=== PATIENT | male | born 1970 | race Caucasian/White ===

== ENCOUNTER 2025-01-17 17:23 | Outpatient (CLI) | payer OTHER, SELFPAY ==
--- NOTE | ~2025-01-17 | XR_ITS ---
EXAM: XR knee LT 3V DATE: 01/17/2025 17:39 HISTORY: M23.209 - Derangement of unspecified meniscus due to old ... . COMPARISON: None available. FINDINGS: Normal mineralization. No fracture or dislocation. No lytic or blastic lesion. Severe medi al joint space narrowing. Moderate tricompartmental osteophytosis. Small-volume joint fluid. No erosi on or periosteal change. Soft tissues within normal limits. IMPRESSION: Tricompartmental left knee osteoarthritic arthritis, severe in the medial compartment. Sm all knee joint effusion. Reviewed, dictated and finalized at location K. IMPRESSION: Tricompartmental left knee osteoarthritic arthritis, severe in the medial compartment. Small knee joint effusion.
--- OUTSIDE RECORDS SUMMARY | 2025-01-17 17:28 | XMS_ITS | Clinical Summary ---
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 Gender Identity Not on file Sexual Orientation Not on file Plan of Treatment Health Maintenance Due Date Last Done Comments Colorectal Cancer Screening Colonoscopy (10 Years) 1972 Annual Physical 1975 Hepatitis C 1990 DTaP, Tdap and Td Vaccines ( 1 - Tdap) 1991 Hepatitis B Vaccines (1 of 3 - 19+ 3-dose series) 1991 Pneumococcal Vaccine: 50+ Ye ars (1 of 1 - PCV) 2022 Zoster Vaccines (1 of 2) 2022 COVID-19 Vaccine (1 - 2023-2 5 season) 2024 Meningococcal B Vaccine Aged Out No l onger eligible based on patient's age to complete this topic Meningococcal Vaccine Aged Out No brad ingris eligible based on patient's age to complete this topic RSV Immunizations Under 20 Months Aged Out No longer eligible based on patient's age to complete this topic Insurance Care Teams Section Chief Relationship Specialty Start Date End Date None, Provider, PCP - General 09/13/19
--- OUTSIDE RECORDS SUMMARY | 2025-01-17 17:28 | XMS_ITS | Clinical Summary ---
Author Organization [facility] [employer] Address [address] [place] [address] Care Team Providers Care Certified Rehabilitation Counselor Name Role Phone Unavailable Primary Care Provider Unavailabl e Source Comments [facility] [employer],non-owned Affiliates and Associated Physician Practices is amultiple site organization consisting of ambulatory clinics and hospital sitesin [place], [place], [place] and [place]. This disclosure is being madepursuant to the Care Everywhere program and may not contain all information available regarding this patient. 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 Gender Identity Not on file Sexual Orientation Not on file Plan of Treatment Health Maintenance Due Date Last Done Comments COLOGUARD (AGES 45-75) - COL ON CA SCREENING 1972 COLON MONITORING 1972 COLONOSCOPY - COLON CA SCREENING 1972 CT COLONOGRAPHY - COLON CA SCREENING 1972 Colorectal Cancer Screening 1972 FIT - COLON CA SCREENING 1972 FLEX SIG - COLON CA SCREENING 1972 LIPID TESTING 1972 HIV SCREENING 1987 HEPATITIS C SCREENING 04/09/1990 DTAP/TDAP/TD VACCINES (1 - Tdap) 1991 HEPATITIS B VACCINE (1 of 3 - 19+ 3-dose series) 1991 PNEUMOCOCCAL VACCINE 50+ (1 of 1 - PCV) 2022 ZOSTER VACCINE (1 of 2) 2022 COVID-19 VACCINE (1 - 2023-2 5 season) 2024 DEPRESSION SCREENING 07/14/2024 INFLUENZA VACCINE (#1) 2025 HIB VACCINE Aged Out No longer eligi ble based on patient's age to complete this topic HPV VACCINE Aged Out No longer eligi ble based on patient's age to complete this topic MENINGOCOCCAL (Group B) VACC INE SHARED DECISION-MAKING Aged Out No longer eligibl e based on patient's age to complete this topic MENINGOCOCCAL GROUPS A/C/Y/W VACCINE Aged Out No longer eligible b ased on patient's age to complete this topic Insurance
--- OUTSIDE RECORDS SUMMARY | 2025-01-17 17:28 | XMS_ITS | Encounter Summary ---
Author Organization [facility] Address [address] [place] [address] Care Team Providers Care Kennel Attendant Name Role Phone Unavailable Primary Care Provider Unavailabl e Encounter Details Date Type Department Care Team (Late st Contact Info) Description 07/15/2024 Lab Requisition [facility] - DermPath Lab [address] [place] [id number] Carmela Minor MD [address] [place] [address] [place] [phone] Neoplasm of uncertain behavior of skin Social History Tobacco Use Types Packs/Day Years Used Date Smoking Tobacco: Never Assessed Sex and Gender Information Value Date Recorded Sex Assigned at Not on file 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 Gender Identity Not on file Sexual Orientation Not on file documented as of this encounter Plan of Treatment Not on file documented as of this encounter Procedures Procedure Name Priority Date/Time Associated Diagnosis Comments DERMATOPATHOLOGY Routine 07/15/2024 12:0 0 AM SAGGER MAKER Neoplasm of uncertain behavior of skin documented in this encounter Results * DERMATOPATHOLOGY (07/15/2024 12:00 AM SAGGER MAKER) Case Report Dermatopathology Report Case: [id number] Authorizing Provider: Carmela Minor MD Collected: 07/15/2024 12:00 AM Ordering Location: [facility] - Received: 07/16/2024 01:03 PM DermPath Lab Pathologist: Tila Chaudhry MD Specimen: Skin, right superior helix 2:06 PM SAGGER MAKER DERMATOPATHOLOGY LABORATORY Final Diagnosis Specimen A. SKIN, right superior helix: SQUAMOUS CELL CARCINOMA, WELL DIFFERENTIATED (C44.222) 2:06 PM [facility] DERMATOPATHOLOGY LABORATORY at [address] SAGGER MAKER Clinical History Squamous Cell Carcinoma 2:06 PM [facility] DERMATOPATHOLOGY LABORATORY Gross Description Specimen A: Received is one formalin filled container labeled with the patient's name and designated right superior helix. The specimen consists of a shave biopsy measuring 6x5x2 mm. Jar 0. 5 2:06 PM [facility] DERMATOPATHOLOGY LABORATORY Microscopic Description Specimen A. SKIN, right superior helix: Arising in the epidermis and extending into the dermis there are irregularly shaped aggregates of keratinocytes showing evidence of premature cornification. 5 2:06 PM [facility] DERMATOPATHOLOGY LABORATORY Disclaimer An external and internal positive and negative controls are appropriate for the histochemical, immunohistochemical and immunofluorescence stain(s) in this case (if any), except where stated explicitly. The performance characteristics of the stain(s) cited in this report were developed and its performance characteristic determined by the Dermatopathology Laboratory at [facility], directed by Dr. Srini Walters. These tests need not be, and therefore are not, approved by the [place] Food and Drug Administration. The tests are used for clinical purposes. Billing Codes Specimen Charges Stain Charges 72769 1 5 2:06 PM [facility] DERMATOPATHOLOGY LABORATORY Embedded Images 2:06 PM [facility] DERMATOPATHOLOGY LABORATORY Pathology/Cytolog y TISSUE SPECIMEN FROM SKIN / Unknown 07/15/2024 07/16/2024 1:03 PM SAGGER MAKER us Carmela Minor MD LAB - PATHOLOGY/CYTOLOGY ORDERAB LES Final Result DERMATOPATHOLOGY LABORATORY [facility] - Department of Dermatology [facility] Medicine [address] [place] [address], [address]rd [place] [address], [facility] [phone] documented in this encounter Visit Diagnoses Diagnosis Neoplasm of uncertain behavior of skin documented in this encounter
--- OUTSIDE RECORDS SUMMARY | 2025-01-17 17:28 | XMS_ITS | Continuity of Care Document ---
Author Organization [facility] Address [address] [place] [address] Phone Care Team Providers Care Investigative Reporter Name Role Phone Bang CARDENAS, Yves Unavailable Unavailable Allergies, Adverse Reactions, Alerts Substance Reaction Status Criticality No Known Allergies Active No Inform ation Medications Medication Instructions Dosage Effective Dates (start - stop) Status Comments Xanax 0.5 mg tablet take 1 tablet by oral route every 6 hours as needed 0.5 MG - Active PRN for anxiety, avoid driving or operate machines Lexapro 10 mg tablet take 1 tablet by oral route every day 10 MG - Active trazodone 50 mg tablet take 1 tablet [...] Copied on Encounter OFFICE/OUTPA TIENT VISIT, EST [facility], [place], [address] [place] [address], [id number], tel:[phone] [facility] [place] anxiety1 (chief complaint) palpitatio n1 (chief complaint) Generalized Anxiety DisorderPrimary insomniaPalpitation s 4 Bang Linton [address], [place], [place], [id number] , . tel:[phone] OFFICE/OUTPA TIENT VISIT, EST [facility] [place], [address], [place], [id number], tel:[phone] [facility] [place] pain (chief complaint) insomnia1 (chief complaint) cold sore1 (chief complaint) ED (chief complaint) Primary insomniaMale erectile dysfunction, unspecifiedChronic pain syndromeHerpes simplex infection 3 Bang Linton [address], [place], [place], [id number] , . tel:[phone] PREV VISIT, NEW, AGE 40-64 [facility] [place], [address], [place], [id number], tel:[phone] [facility] [place] physical (chief complaint) Encounter for general adult medical examination without abnormal findings 3 Bang Marinelli. [address] [place], [place], [id number] , . tel:[phone] Family History Family Member Type Diagnosis Age At Onset Sister Problem Alive and well Father Problem prostate CA 50 Mother Problem melanoma Payers Payer name Insurance type Covered alliance party ID Authoriza tion(s) No Information Social History [...] Mental Status Date Cognitive Assessment Orientation - [place] ed to time, place, person, situation.
== END 2025-01-17 17:24 | disposition home or self-care (01) ==
PROVIDERS: PCP Family Medicine; Visit Provider Nurse Practitioner Adult Health
DX: M17.12 Unilateral primary osteoarthritis, left knee (principal)
CPT/HCPCS: 73562

== ENCOUNTER 2025-02-21 14:00 | Outpatient (CLI) | payer OTHER, SELFPAY ==
--- NOTE | ~2025-02-21 | MR_ITS ---
EXAMINATION: MR knee LT wo con DATE: 02/21/2025 14:43 INDICATION: Meniscal derangement at the left knee TECHNIQUE: Magnetic resonance imaging (MRI) of the left knee was performed without intravenous contra st. Sequences included coronal PD-weighted FSE, coronal PD-weighted FS FSE, sagittal T2-weighted FSE , sagittal PD-weighted FS FSE and axial PD weighted fat saturated FSE. COMPARISON: Left knee radiographs dated 01/17/2025 FINDINGS: Medial compartment: Medial extrusion of the medial meniscal body with complex tear of the body and posterior horn. This i ncludes a dominant longitudinal horizontal tear plane with secondary tear planes involving the portio n of the posterior body inferior to the horizontal tear plane. There is a small macerated appearing m eniscal flap extending anteriorly from the free edge of the lateral aspect of the posterior horn. The extruded meniscal body also appears small with macerated appearance with diffuse increased amorphous increased signal of the remaining meniscal tissue. There is partial thickness cartilage loss with ch ondral surface regularity throughout the medial tibial plateau and weightbearing medial femoral condy le. This is most severe at the medial margin of the medial tibial plateau and anterior weightbearing medial femoral condyle where it appears near full-thickness with mild subarticular edema-like signal change. Small to moderate size marginal osteophytes are present. Lateral compartment: Lateral meniscus is normal. Partial-thickness chondral fissuring which appears to involve greater ayan n 50% the cartilage thickness but without degenerative subchondral changes at the posterior third of the lateral tibial plateau. Shallow chondral ulceration along the anterior and posterior margins of t he weightbearing lateral femoral condyle. Small to moderate size marginal osteophytes are present. Patellofemoral compartment: Deep chondral ulceration with underlying small central subchondral osteophytes and minimal scattered subarticular edema-like signal change at the trochlear groove and immediately adjacent medial and lat eral trochlea. Patellar cartilage thickness is relatively preserved with scattered deep chondral fiss uring without degenerative subchondral changes at the apical ridge in both medial and lateral facets. Moderate-sized marginal osteophytes are present. Ligaments and tendons: Anterior and posterior cruciate ligaments are normal. The medial collateral ligament and fibular wilman ateral ligament complex are normal. The extensor mechanism is normal. The visualized medial and later al hamstring tendons as well as the iliotibial band are normal. Fluid: Small knee joint effusion with mild synovitis at the suprapatellar pouch. No loose osteochondral bodi es identified. Osseous/other: No fracture or pathologic marrow replacing process. IMPRESSION: 1. Complex medial meniscal tear. 2. Tricompartmental osteoarthritis, moderate severity with high-grade chondromalacia in the medial an d patellofemoral compartments and mild with moderate grade chondral malacia in the lateral compartmen t. Reviewed, dictated and finalized at location A. IMPRESSION: 1. Complex medial meniscal tear. 2. Tricompartmental osteoarthritis, moderate severity with high-grade chondroma lacia in the medial and patellofemoral compartments and mild with moderate grad e chondral malacia in the lateral compartment.
--- OUTSIDE RECORDS SUMMARY | 2025-02-21 14:24 | XMS_ITS | Clinical Summary ---
Author Organization 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
--- OUTSIDE RECORDS SUMMARY | 2025-02-21 14:24 | XMS_ITS | Patient Health Record ---
Author Organization [facility] Address [address] [place] [address] Care Team Providers Care Senior Ui Software Engineer Name Role Phone PERRY MCCARTNEY Unavailable [phone] Rhonda Barahonaa Unavailable Unavailable Allergies No Known Allergies Reason For Referral No Information Problems Problem Type SNOMED Code ICD Code Onset Dates Problem Status W/U Status Risk Notes Problem Obstructive sleep apnea (adult) (pediatric) (G47.33) Active confirmed Plan Of Treatment No Information Insurance Providers Payer Name Payer Address Payer Phone Subscriber Number Group Number Insured Name Patient Relationship to Insured Coverage Start Date Coverage End Date [facility] [address] [place] [address] [phone] [id number] Den Deleon Self - patient is the insured Medical (General) History Medical History History ICD Code Arthritis Insomnia
--- OUTSIDE RECORDS SUMMARY | 2025-02-21 14:24 | XMS_ITS | Clinical Summary ---
Author Organization [facility] [employer] Address [address] [facility] [place] [address] Care Team Providers Care V Belt Curer Name Role Phone Unavailable Primary Care Provider Unavailabl e Source Comments [facility] [employer],non-owned Affiliates and Associated Physician Practices is amultiple site organization consisting of ambulatory clinics and hospital sitesin [place] and [place]. This disclosure is being madepursuant to the Care Everywhere program and may not contain all information available regarding this patient. Last updated 18.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
--- OUTSIDE RECORDS SUMMARY | 2025-02-21 14:24 | XMS_ITS | Encounter Summary ---
Author Organization [facility] Address [address] [facility] [address] [facility] [place] [address] Care Team Providers Care Safe And Vault Mechanic Name Role Phone Unavailable Primary Care Provider Unavailabl e Encounter Details Date Type Department Care Team (Late st Contact Info) Description 07/15/2024 Lab Requisition [facility] - DermPath Lab [address] [facility] [place] [phone] Carmela Minor MD [address] [place] [address] [place] [phone] Neoplasm of uncertain behavior of skin Social History Tobacco Use Types Packs/Day Years Used Date Smoking Tobacco: Never Assessed Sex and Gender Information Value Date Recorded Sex Assigned at Not on file Legal Sex Male 12:15 PM STOCK MOVER Gender Identity Not on file Sexual Orientation Not on file documented as of this encounter Plan of Treatment Not on file documented as of this encounter Procedures Procedure Name Priority Date/Time Associated Diagnosis Comments DERMATOPATHOLOGY Routine 07/15/2024 12:0 0 AM STOCK MOVER Neoplasm of uncertain behavior of skin documented in this encounter Results * DERMATOPATHOLOGY (07/15/2024 12:00 AM STOCK MOVER) Case Report Dermatopathology Report Case: [id number] Authorizing Provider: Carmela Minor MD Collected: 07/15/2024 12:00 AM Ordering Location: [facility] - Received: 07/16/2024 01:03 PM DermPath Lab Pathologist: Tila Chaudhry MD Specimen: Skin, right superior helix 2:06 PM STOCK MOVER DERMATOPATHOLOGY LABORATORY Final Diagnosis Specimen A. SKIN, right superior helix: SQUAMOUS CELL CARCINOMA, WELL DIFFERENTIATED (C44.222) 2:06 PM [facility] DERMATOPATHOLOGY LABORATORY at [address] STOCK MOVER Clinical History Squamous Cell Carcinoma 2:06 PM [facility] DERMATOPATHOLOGY LABORATORY Gross Description Specimen A: Received is one formalin filled container labeled with the patient's name and designated right superior helix. The specimen consists of a shave biopsy measuring 6x5x2 mm. Jar 0. 5 2:06 PM [facility] DERMATOPATHOLOGY LABORATORY Microscopic Description Specimen A. SKIN, right superior helix: Arising in the epidermis and extending into the dermis there are irregularly shaped aggregates of keratinocytes showing evidence of premature cornification. 5 2:06 PM [facility] DERMATOPATHOLOGY LABORATORY Disclaimer An external and internal positive and negative controls are appropriate for the histochemical, immunohistochemical and immunofluorescence stain(s) in this case (if any), except where stated explicitly. The performance characteristics of the stain(s) cited in this report were developed and its performance characteristic determined by the Dermatopathology Laboratory at [facility], directed by Dr. Srini Walters. These tests need not be, and therefore are not, approved by the [place] Food and Drug Administration. The tests are used for clinical purposes. Billing Codes Specimen Charges Stain Charges 19229 1 5 2:06 PM [facility] DERMATOPATHOLOGY LABORATORY Embedded Images 2:06 PM [facility] DERMATOPATHOLOGY LABORATORY Pathology/Cytolog y TISSUE SPECIMEN FROM SKIN / Unknown 07/15/2024 07/16/2024 1:03 PM STOCK MOVER us Carmela Minor MD LAB - PATHOLOGY/CYTOLOGY ORDERAB LES Final Result DERMATOPATHOLOGY LABORATORY [facility] - Department of Dermatology [facility] Medicine [address] [place] [address], [address] [place] [address], [facility] [phone] documented in this encounter Visit Diagnoses Diagnosis Neoplasm of uncertain behavior of skin documented in this encounter
== END 2025-02-21 14:01 | disposition home or self-care (01) ==
PROVIDERS: PCP Family Medicine; Visit Provider Nurse Practitioner Adult Health
DX: S83.232D Complex tear of medial meniscus, current injury, left knee, subsequent encounter (principal); X58.XXXD Exposure to other specified factors, subsequent encounter; M17.12 Unilateral primary osteoarthritis, left knee
CPT/HCPCS: 73721

== ENCOUNTER 2025-03-02 07:42 | Outpatient (CLI) | payer OTHER, SELFPAY ==
--- NOTE | ~2025-03-02 | US_ITS ---
EXAM: US abdomen limited - 03/02/2025 7:58 CDT History: 54 years old Male with ruq pain, diarrhea TECHNIQUE: Ultrasound of the abdomen was performed. COMPARISON: None available. FINDINGS: LIVER: Normal echogenicity. The liver is normal in size. No discrete liver masses are noted. INTRAHEPATIC BILE DUCTS: Nondilated. COMMON BILE DUCT: 4 mm. Normal caliber. GALLBLADDER: Normally distended. No stones, wall thickening or surrounding fluid. PANCREAS: Visualized portions are normal. ASCITES: None. OTHER: Patient IVC IMPRESSION: Normal ultrasound evaluation of the right upper quadrant abdomen. Reviewed, dictated and finalized at location A.
== END 2025-03-02 07:43 | disposition home or self-care (01) ==
LOC: MICIMG 07:43
PROVIDERS: PCP Family Medicine; Visit Provider Nurse Practitioner Family
DX: R10.11 Right upper quadrant pain (principal); R19.7 Diarrhea, unspecified
CPT/HCPCS: 76705

== ENCOUNTER 2025-03-23 10:50 | Outpatient (CLI) | payer OTHER, SELFPAY ==
--- OUTSIDE RECORDS SUMMARY | 2023-09-04 04:58 | XMS_ITS | Continuity of Care Document ---
Author Organization [facility] Address [address] [place] [address] Phone Care Team Providers Care Cut And Cover Line Worker Name Role Phone Yves Cuenca MD Unavailable Unavailable Allergies, Adverse Reactions, Alerts Substance Reaction Status Criticality No Known Allergies Active No Inform ation Medications Medication Instructions Dosage Effective Dates (start - stop) Status Comments Lexapro 10 mg tablet take 1 tablet by oral route every day 10 MG - Active Xanax 0.5 mg tablet take 1 tablet by oral route every 6 hours as needed 0.5 MG - Active PRN for anxiety, avoid driving or operate machines trazodone 50 mg tablet take 1 tablet by oral route every bedtime after meals 50 MG - Active meloxicam 15 mg tablet take 1 tablet by oral route every day 15 MG - Active sildenafil 100 mg tablet take 1 tablet by oral route every day as needed approximately 1 hour before sexual activity as needed 100 MG - Active take one oral ly about one hour before activity, max 1/24 hours Valtrex 1 gram tablet take 2 Tablet by oral route every 12 hours as needed 2000 MG - Active take total of 4 pills for each episode Procedures Procedure Date OFFICE/OUTPATIENT VISIT, EST OFFICE/OUTPATIENT VISIT, EST PREV VISIT, NEW, AGE 40-64 Advance Directives Directive Yes / No Effective Date File Name No Information Encounters Encounter Description Practice Location Reason(s) For Visit Diagnoses Date Provider Providers Copied on Encounter OFFICE/OUTPA TIENT VISIT, EST [facility], [address] [place] [address], [id number], tel:[phone] [facility] anxiety1 (chief complaint) palpitatio n1 (chief complaint) Generalized Anxiety DisorderPrimary insomniaPalpitation s 4 Bang Linton [address], [place], [place], [id number] , . tel:[phone] OFFICE/OUTPA TIENT VISIT, EST [facility], [address], [place], [id number], tel:[phone] [facility] pain (chief complaint) insomnia1 (chief complaint) cold sore1 (chief complaint) ED (chief complaint) Primary insomniaMale erectile dysfunction, unspecifiedChronic pain syndromeHerpes simplex infection 3 Bang Linton [address], [place], [place], [id number] , . tel:[phone] PREV VISIT, NEW, AGE 40-64 [facility], [address], [place], [id number], tel:[phone] [facility] physical (chief complaint) Encounter for general adult medical examination without abnormal findings 3 Bang Marinelli. [address], [place], [id number] , . tel:[phone] Family History Family Member Type Diagnosis Age At Onset Sister Problem Alive and well Father Problem prostate CA 50 Mother Problem melanoma Payers Payer name Insurance type Covered democrat ID Authoriza tion(s) No Information Social History Type Description Quantity Date Captured Comments Alcohol Use Details scotch 2 drinks monthly 4 Caffeine Use Details Unknown Tobacco Use Status Occasional tobacco smoker Smoking Status Light tobacco smoker Sex Male Vital Signs Date / Time: Height Weight BMI Pulse Rate Blood Pressure Temperature Respiratory Rate Body Surface Area Head Circumference BMI percentile Pulse Ox Inhaled Ox 10:01 AM 67.32 in 205.80 lbs 31.9 3 kg/m eter (2) 80 /min 120/80 mm[Hg] 98.3 F 16 /min Chief Complaint And Reason For Visit From encounter dated '09/04/2023 09:58'. anxiety1 (chief complaint). Description: Pt has been having severe anxiety lately pt has been having insomnia as well Pt denies any kathya depression Pt has been having panic attacks Pt states that heretired from and he has a new job and he has some uncertainties. He can not pinpoint anything but he feels everything is bearing down on him and he feels very anxious all the time. Pt deniesany suicidal or homicidal thought Pt denies any crying spells. palpitation1 (chief complaint). Description: Pt has been feeling mild palpitation during panic attacks Pt denies any sob. Pt denies any chest pain. Pt denies any dizziness or syncope Plan Of Treatment Date Type Action Status No Information History Of Present Illness Encounter Date Complaint History Of Prese nt Illness anxiety1 Pt has been havi ng severe anxiety lately pt has been having insomnia as well Pt denies any kathya depression Pt has been having panic attacks Pt states that he retired from and he has a new job and he has some uncertainties. He can not pinpoint anything but he feels everything is bearing down on him and he feels very anxious all the time. Pt denies any suicidal or homicidal thought Pt denies any crying spells. palpitation1 Pt has been feel ing mild palpitation during panic attacks Pt denies any sob. Pt denies any chest pain. Pt denies any dizziness or syncope pain Pt has knee and neck pain. Pt has history of neck and knee surgery Pt takes mobic daily and doing ok Pt needs refill insomnia1 Pt has chronic i nsomnia Pt takes trazodone qhs and doing ok. Pt needs refill cold sore1 Pt has intermitt ent cold sore and he wants valtrex PRN. Pt denies any acute infection. ED Pt has ED. Pt de nies any testicular pain, atrophy or nodule Pt has good libido Pt states that viagra worked well for him. He wants some viagra refilled. Pt denies any chest pain with sex . Pt has good libido. Shaquille-11-2023 physical Pt needs annual physical. pt has chronic insomnia and some knee and neck pain Pt has history of knee surgery and cervical fusion. Pt take mobic PRN. Pt takes Trazodone qhs PRN for insomnia and doing ok. Pt overall feels well. Pt denies any knee swelling, redness or warmth Pt denies any cervical radiculopathy or upper extremity weakness or numbness or tingling. Pt denies any new complaints Instructions Date Instruction Additional Infor eric No Information Assessments Type Assessment Date assessment Generalized Anxiety Disorder Aug assessment Primary insomnia assessment Palpitations Mental Status Date Cognitive Assessment Orientation - [place] ed to time, place, person, situation.
--- NOTE | ~2025-03-23 | NM_ITS ---
EXAMINATION: NM_HEPATWE_NM DATE: 03/23/2025 14:10 INDICATION: Right upper quadrant abdominal pain. Diarrhea. COMPARISON: None. TECHNIQUE: 5.2 mCi Tc-99m mebrofenin (Choletec) was administered intravenously. Scintigraphic images of the abdomen were obtained for one hour. At the 1 hour time point, the patient drank 8 oz Ensure, and imaging was continued for 60 minutes. Gallbladder ejection fraction was calculated by the technologist. FINDINGS: There is normal clearance of radiotracer from the blood pool. There is homogeneous tracer uptake by the liver. Activity progresses to the bowel and gallbladder. The gallbladder ejection fraction (GBEF) is 95%. Note that with this technique, normal GBEF >= 33%. IMPRESSION: 1. Gallbladder ejection fraction of 95% which could be seen with hyperkinetic gallbladder. Reviewed, dictated and finalized at location A.
--- OUTSIDE RECORDS SUMMARY | 2025-03-23 11:48 | XMS_ITS | Encounter Summary ---
Author Organization [facility] Address [address] [place] [address] Care Team Providers Care Skin Diver Name Role Phone Unavailable Primary Care Provider Unavailabl e Encounter Details Date Type Department Care Team (Late st Contact Info) Description 07/15/2024 Lab Requisition [facility] - DermPath Lab [address] [facility], [place] [id number] Carmela Minor MD [address] [place] [address] [place] [phone] Neoplasm of uncertain behavior of skin Social History Tobacco Use Types Packs/Day Years Used Date Smoking Tobacco: Never Assessed Sex and Gender Information Value Date Recorded Sex Assigned at Not on file Legal Sex Male 12:15 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 Gender Identity Not on file Sexual Orientation Not on file documented as of this encounter Plan of Treatment Not on file documented as of this encounter Procedures Procedure Name Priority Date/Time Associated Diagnosis Comments DERMATOPATHOLOGY Routine 07/15/2024 12:0 0 AM BUTT PRESSER Neoplasm of uncertain behavior of skin documented in this encounter Results * DERMATOPATHOLOGY (07/15/2024 12:00 AM BUTT PRESSER) Case Report Dermatopathology Report Case: [id number] Authorizing Provider: Carmela Minor MD Collected: 07/15/2024 12:00 AM Ordering Location: [facility] - Received: 07/16/2024 01:03 PM DermPath Lab Pathologist: Tila Chaudhry MD Specimen: Skin, right superior helix 2:06 PM BUTT PRESSER DERMATOPATHOLOGY LABORATORY Final Diagnosis Specimen A. SKIN, right superior helix: SQUAMOUS CELL CARCINOMA, WELL DIFFERENTIATED (C44.222) 2:06 PM [facility] DERMATOPATHOLOGY LABORATORY at [address]6 BUTT PRESSER Clinical History Squamous Cell Carcinoma 2:06 PM [facility] DERMATOPATHOLOGY LABORATORY Gross Description Specimen A: Received is one formalin filled container labeled with the patient's name and designated right superior helix. The specimen consists of a shave biopsy measuring 6x5x2 mm. Jar 0. 5 2:06 PM [facility] DERMATOPATHOLOGY LABORATORY Microscopic Description Specimen A. SKIN, right superior helix: Arising in the epidermis and extending into the dermis there are irregularly shaped aggregates of keratinocytes showing evidence of premature cornification. 5 2:06 PM [facility] DERMATOPATHOLOGY LABORATORY Disclaimer An external and internal positive and negative controls are appropriate for the histochemical, immunohistochemical and immunofluorescence stain(s) in this case (if any), except where stated explicitly. The performance characteristics of the stain(s) cited in this report were developed and its performance characteristic determined by the Dermatopathology Laboratory at [facility], directed by Dr. Srini Walters. These tests need not be, and therefore are not, approved by the [place] Food and Drug Administration. The tests are used for clinical purposes. Billing Codes Specimen Charges Stain Charges 54679 1 5 2:06 PM [facility] DERMATOPATHOLOGY LABORATORY Embedded Images 2:06 PM [facility] DERMATOPATHOLOGY LABORATORY Pathology/Cytolog y TISSUE SPECIMEN FROM SKIN / Unknown 07/15/2024 07/16/2024 1:03 PM BUTT PRESSER us Carmela Minor MD LAB - PATHOLOGY/CYTOLOGY ORDERAB LES Final Result DERMATOPATHOLOGY LABORATORY [facility] - Department of Dermatology [facility] Medicine [address] [place] [address], [address] [place] [address], [facility] [phone] documented in this encounter Visit Diagnoses Diagnosis Neoplasm of uncertain behavior of skin documented in this encounter
--- OUTSIDE RECORDS SUMMARY | 2025-03-23 11:48 | XMS_ITS | Clinical Summary ---
Author Organization [facility] Address [address] [place] [address] Care Team Providers Care Instrument And Control Service Person Name Role Phone None, Provider MD Primary Care Provider Unavaila ble Social History Tobacco Use Types Packs/Day Years Used Date Smoking Tobacco: Never Assessed Sex and Gender Information Value Date Recorded Sex Assigned at Not on file Legal Sex Male 10:09 AM COMPOSITION MIXER Gender Identity Not on file Sexual Orientation [...] COVID-19 Vaccine (1 - 2023-2 5 season) 2025 Meningococcal B Vaccine Aged Out No l onger eligible based on patient's age to complete this topic Meningococcal Vaccine Aged Out No brad ingris eligible based on patient's age to complete this topic RSV Immunizations Under 20 Months Aged Out No longer eligible based on patient's age to complete this topic Insurance Care Teams Instrument And Control Service Person Relationship Specialty Start Date End Date None, Provider, PCP - General 09/13/19
--- OUTSIDE RECORDS SUMMARY | 2025-03-23 11:48 | XMS_ITS | Clinical Summary ---
Author Organization [facility] [employer] Address [address] [facility] [place] [address] Care Team Providers Care Director Of Logistics Name Role Phone Unavailable Primary Care Provider Unavailabl e Source Comments [facility] [employer],non-owned Affiliates and Associated Physician Practices is amultiple site organization consisting of ambulatory clinics and hospital sitesin [place], [place], [place] and [place]. This disclosure is being madepursuant to the Care Everywhere program and may not contain all information available regarding this patient. 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
== END 2025-03-23 10:51 | disposition home or self-care (01) ==
PROVIDERS: PCP Family Medicine; Visit Provider Nurse Practitioner Family
DX: R10.11 Right upper quadrant pain (principal); R19.7 Diarrhea, unspecified
CPT/HCPCS: 78226; A9537

== ENCOUNTER 2025-04-29 07:59 | Outpatient (CLI) | payer OTHER, SELFPAY ==
--- NOTE | ~2025-04-29 | CT_ITS ---
.. EXAMINATION: CT_LELTCWO_CT DATE: 04/29/2025 08:21 INDICATION: Left knee osteoarthritis for preoperative planning TECHNIQUE: High resolution computed tomography (CT) of the left lower extremity from the hip through the ankle was performed without intravenous contrast. Additional sagittal and coronal reconstructions were performed. Automated exposure control and iterative reconstruction technique were employed.0 The dose-length product was 1892.48 mGy-cm. COMPARISON: None FINDINGS: Bone alignment is normal. No fracture or osteonecrosis. Moderate severity with medial and patellofemoral compartment predominant tricompartmental osteoarthritis at the left knee. No left knee joint effusion. Additional mild polyarticular osteoarthritis at the left foot, ankle and multiple joints in the left foot. Soft tissues are unremarkable. No free fluid in the pelvis. No pathologically enlarged left pelvic or inguinal lymphadenopathy. IMPRESSION: 1. Moderately severe medial and patellofemoral compartment predominant tricompartmental osteoarthritis the left knee. Reviewed, dictated and finalized at location A. IMPRESSION: 1. Moderately severe medial and patellofemoral compartment predominant tricompa rtmental osteoarthritis the left knee.
--- OUTSIDE RECORDS SUMMARY | 2025-04-29 08:06 | XMS_ITS | Clinical Summary ---
Author Organization [facility] [employer] Address [address] [facility] [place] [address] Care Team Providers Care Chief Security And Safety Officer Name Role Phone Unavailable Primary Care Provider Unavailabl e Source Comments [facility] [employer],non-owned Affiliates and Associated Physician Practices is amultiple site organization consisting of ambulatory clinics and hospital sitesin [place], [place], [place] and [place]. This disclosure is being madepursuant to the Care Everywhere program and may not contain all information available regarding this patient. 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
--- OUTSIDE RECORDS SUMMARY | 2025-04-29 08:06 | XMS_ITS | Clinical Summary ---
Author Organization [facility] Address [address] [place] [address] Care Team Providers Care Photovoltaic Power Systems Engineer Name Role Phone None, Provider MD Primary Care Provider Unavaila ble Social History Tobacco Use Types Packs/Day Years Used Date Smoking Tobacco: Never Assessed Sex and Gender Information Value Date Recorded Sex Assigned at Not on file Legal Sex Male 10:09 AM PORT ENGINEER Gender Identity Not on file Sexual Orientation [...] Vaccine (1 - 2023-2 5 season) 2025 Influenza Adult (#1) 2025 Hepatitis A Vaccines Aged Out No long er eligible based on patient's age to complete this topic Meningococcal B Vaccine Aged Out No l onger eligible based on patient's age to complete this topic Meningococcal Vaccine Aged Out No brad ingris eligible based on patient's age to complete this topic RSV Immunizations Under 20 Months Aged Out No longer eligible based on patient's age to complete this topic Insurance Care Teams Photovoltaic Power Systems Engineer Relationship Specialty Start Date End Date None, Provider, PCP - General 09/13/19
--- OUTSIDE RECORDS SUMMARY | 2025-04-29 08:06 | XMS_ITS | Encounter Summary ---
Author Organization [facility] Address [address] [facility] [place] [address] Care Team Providers Care Yolk Spray Drier Name Role Phone Unavailable Primary Care Provider Unavailabl e Encounter Details Date Type Department Care Team (Late st Contact Info) Description 07/15/2024 Lab Requisition [facility] - DermPath Lab [address] [facility] [place] [phone] Carmela Minor MD [address] [place] [address] [place] [phone] Neoplasm of uncertain behavior of skin Social History Tobacco Use Types Packs/Day Years Used Date Smoking Tobacco: Never Assessed Sex and Gender Information Value Date Recorded Sex Assigned at Not on file Legal Sex Male 12:15 PM 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 Gender Identity Not on file Sexual Orientation Not on file documented as of this encounter Plan of Treatment Not on file documented as of this encounter Procedures Procedure Name Priority Date/Time Associated Diagnosis Comments DERMATOPATHOLOGY Routine 07/15/2024 12:0 0 AM 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 INSPECTOR Neoplasm of uncertain behavior of skin documented in this encounter Results * DERMATOPATHOLOGY (07/15/2024 12:00 AM 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 INSPECTOR) Case Report Dermatopathology Report Case: [id number] Authorizing Provider: Carmela Minor MD Collected: 07/15/2024 12:00 AM Ordering Location: [facility] - Received: 07/16/2024 01:03 PM DermPath Lab Pathologist: Tila Chaudhry MD Specimen: Skin, right superior helix 2:06 PM 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 INSPECTOR DERMATOPATHOLOGY LABORATORY Final Diagnosis Specimen A. SKIN, right superior helix: SQUAMOUS CELL CARCINOMA, WELL DIFFERENTIATED (C44.222) 2:06 PM [facility] DERMATOPATHOLOGY LABORATORY at [address] 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 INSPECTOR Clinical History Squamous Cell Carcinoma 2:06 PM [facility] DERMATOPATHOLOGY LABORATORY Gross Description Specimen A: Received is one formalin filled container labeled with the patient's name and designated right superior helix. The specimen consists of a shave biopsy measuring 6x5x2 mm. Jar 0. 5 2:06 PM [facility] DERMATOPATHOLOGY LABORATORY Microscopic Description Specimen A. SKIN, right superior helix: Arising in the epidermis and extending into the dermis there are irregularly shaped aggregates of keratinocytes showing evidence of premature cornification. 5 2:06 PM [facility] DERMATOPATHOLOGY LABORATORY Disclaimer An external and internal positive and negative controls are appropriate for the histochemical, immunohistochemical and immunofluorescence stain(s) in this case (if any), except where stated explicitly. The performance characteristics of the stain(s) cited in this report were developed and its performance characteristic determined by the Dermatopathology Laboratory at [facility], directed by Dr. Srini Walters. These tests need not be, and therefore are not, approved by the [place] Food and Drug Administration. The tests are used for clinical purposes. Billing Codes Specimen Charges Stain Charges 00397 1 5 2:06 PM [facility] DERMATOPATHOLOGY LABORATORY Embedded Images 2:06 PM [facility] DERMATOPATHOLOGY LABORATORY Pathology/Cytolog y TISSUE SPECIMEN FROM SKIN / Unknown 07/15/2024 07/16/2024 1:03 PM 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 INSPECTOR us Carmela Minor MD LAB - PATHOLOGY/CYTOLOGY ORDERAB LES Final Result DERMATOPATHOLOGY LABORATORY [facility] - Department of Dermatology [facility] Medicine [address] [place] [address], [address] [place] [address], [facility] [phone] documented in this encounter Visit Diagnoses Diagnosis Neoplasm of uncertain behavior of skin documented in this encounter
--- OUTSIDE RECORDS SUMMARY | 2025-04-29 08:07 | XMS_ITS | Patient Health Record ---
Author Organization [facility] [place] Address [address] [facility] [address] [place] [address] Care Team Providers Care Hop Trainer Name Role Phone PERRY MCCARTNEY Unavailable [phone] Rhonda Barahonaa Unavailable Unavailable Allergies No Known Allergies Reason For Referral No Information Problems Problem Type SNOMED Code ICD Code Onset Dates Problem Status W/U Status Risk Notes Problem Obstructive sleep apnea syndrome (disorder) (20306416) Obstructive sleep apnea (adult) (pediatric) (G47.33) Active confirmed Plan Of Treatment No Information Insurance Providers Payer Name Payer Address Payer Phone Subscriber Number Group Number Insured Name Patient Relationship to Insured Coverage Start Date Coverage End Date [facility] [address] [place] [address] [phone] [id number] Den Deleon Self - patient is the insured Medical (General) History Medical History History ICD Code Arthritis Insomnia
--- NOTE | 2025-04-29 08:32 | ECG_ITS ---
Test Date: 2025-04-29 08:41:30 Measurements Intervals [place] Rate: 78 P: 18 TN: 167 QRS: 3 QRSD: 112 T: 23 QT: 369 QTc: 421 Interpretive Statements SINUS RHYTHM INTRAVENTRICULAR CONDUCTION DELAY DELAYED PRECORDIAL R/S TRANSITION BORDERLINE ECG No previous ECG available for comparison Electronically Signed On 04-29-2025 10:12:26 CDT by Neymar Hubbard D.O.
== END 2025-04-29 08:00 | disposition home or self-care (01) ==
PROVIDERS: PCP Family Medicine; Visit Provider Orthopaedic Surgery
DX: Z01.818 Encounter for other preprocedural examination (principal); M17.12 Unilateral primary osteoarthritis, left knee; R94.31 Abnormal electrocardiogram [ECG] [EKG]
CPT/HCPCS: 73700; 93005

== ENCOUNTER 2025-06-08 00:19 | Day surgery (SDC) | payer OTHER, SELFPAY ==
--- OUTSIDE RECORDS SUMMARY | 2025-06-08 00:22 | XMS_ITS | Clinical Summary ---
Author Organization [facility] [employer] Address [address] [facility] [place] [address] Care Team Providers Care Manager Safe Name Role Phone Unavailable Primary Care Provider Unavailabl e Source Comments [facility] [employer],non-owned Affiliates and Associated Physician Practices is amultiple site organization consisting of ambulatory clinics and hospital sitesin [place], [place], [place] and [place]. This disclosure is being madepursuant to the Care Everywhere program and may not contain all information available regarding this patient. 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
--- OUTSIDE RECORDS SUMMARY | 2025-06-08 00:22 | XMS_ITS | Clinical Summary ---
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
--- OUTSIDE RECORDS SUMMARY | 2025-06-08 00:22 | XMS_ITS | Encounter Summary ---
Author Organization [facility] Address [address] [place] [address] Care Team Providers Care Web Designer Name Role Phone Unavailable Primary Care Provider Unavailabl e Encounter Details Date Type Department Care Team (Late st Contact Info) Description 07/15/2024 Lab Requisition [facility] - DermPath Lab [address] [place] [id number] Carmela Minor MD [address] [place] [address] [place] [phone] Neoplasm of uncertain behavior of skin Social History Tobacco Use Types Packs/Day Years Used Date Smoking Tobacco: Never Assessed Sex and Gender Information Value Date Recorded Sex Assigned at Not on file Legal Sex Male 12:15 PM [employer] Gender Identity Not on file Sexual Orientation Not on file documented as of this encounter Plan of Treatment Not on file documented as of this encounter Procedures Procedure Name Priority Date/Time Associated Diagnosis Comments DERMATOPATHOLOGY Routine 07/15/2024 12:0 0 AM [employer] Neoplasm of uncertain behavior of skin documented in this encounter Results * DERMATOPATHOLOGY (07/15/2024 12:00 AM [employer]) Case Report Dermatopathology Report Case: [id number] Authorizing Provider: Carmela Minor MD Collected: 07/15/2024 12:00 AM Ordering Location: [facility] - Received: 07/16/2024 01:03 PM DermPath Lab Pathologist: Tila Chaudhry MD Specimen: Skin, right superior helix 2:06 PM [employer] DERMATOPATHOLOGY LABORATORY Final Diagnosis Specimen A. SKIN, right superior helix: SQUAMOUS CELL CARCINOMA, WELL DIFFERENTIATED (C44.222) 2:06 PM [facility] DERMAT[facility] at [address] [employer] Clinical History Squamous Cell Carcinoma 2:06 PM [facility] DERMATOP[facility] Gross Description Specimen A: Received is one formalin filled container labeled with the patient's name and designated right superior helix. The specimen consists of a shave biopsy measuring 6x5x2 mm. Jar 0. 5 2:06 PM [facility] DERMATOPATH[facility] Microscopic Description Specimen A. SKIN, right superior helix: Arising in the epidermis and extending into the dermis there are irregularly shaped aggregates of keratinocytes showing evidence of premature cornification. 5 2:06 PM [facility] DERMATOPATH[facility] Disclaimer An external and internal positive and negative controls are appropriate for the histochemical, immunohistochemical and immunofluorescence stain(s) in this case (if any), except where stated explicitly. The performance characteristics of the stain(s) cited in this report were developed and its performance characteristic determined by the Dermatopathology Laboratory at [facility], directed by Dr. Srini Walters. These tests need not be, and therefore are not, approved by the [place] Food and Drug Administration. The tests are used for clinical purposes. Billing Codes Specimen Charges Stain Charges 15643 1 5 2:06 PM [facility] Embedded Images 2:06 PM [facility] Pathology/Cytolog y TISSUE SPECIMEN FROM SKIN / Unknown 07/15/2024 07/16/2024 1:03 PM [employer] us Carmela Minor MD LAB - PATHOLOGY/CYTOLOGY ORDERAB LES Final Result DERMATOPATHOLOGY LABORATORY [facility] - Department of Dermatology [facility] Medicine [address] [place] [address], [address] [place] [address], [facility] [phone] documented in this encounter Visit Diagnoses Diagnosis Neoplasm of uncertain behavior of skin documented in this encounter
--- OUTSIDE RECORDS SUMMARY | 2025-06-08 00:22 | XMS_ITS | Patient Health Record ---
Author Organization [facility] [place] Address [address] [place] [address] Care Team Providers Care Sales And Marketing Manager Name Role Phone PERRY MCCARTNEY Unavailable [phone] Rhonda Barahonaa Unavailable Unavailable Allergies No Known Allergies Reason For Referral No Information Problems Problem Type SNOMED Code ICD Code Onset Dates Problem Status W/U Status Risk Notes Problem Obstructive sleep apnea syndrome (disorder) (75959921) Obstructive sleep apnea (adult) (pediatric) (G47.33) Active confirmed Plan Of Treatment No Information Insurance Providers Payer Name Payer Address Payer Phone Subscriber Number Group Number Insured Name Patient Relationship to Insured Coverage Start Date Coverage End Date [facility] [address] [place] [phone] [id number] Den Deleon Self - patient is the insured Medical (General) History Medical History History ICD Code Arthritis Insomnia
[2025-06-08 12:39] VITALS: BP 149/86; PULSE 79; RESP 18; TEMP 36.9; O2SAT 97
[2025-06-08] MEDS: LACTATED RINGERS 1,000 ML 150 ML IV CONT (12:55)
--- NOTE | 2025-06-08 13:09 | P.PNAN_ITS ---
Anes - Initial Pre Proc Eval Procedure: Operation Date: 06/08/25 14:30 Proposed Procedures p Esophagogastroduodenoscopy - Ari Hathaway MD Date/Time: 06/08/25 13:09 Surgeon: Ari Hathaway MD Pre Op Diagnosis: Right upper quadrant pain Patient Data Age: 55 Gender: M Height: Weight: 102 kg Last Vital Signs Temp 36.9 C 06/08/25 12:39 Pulse 79 06/08/25 12:39 Resp 18 06/08/25 12:39 BP 149/86 H 06/08/25 12:39 Pulse Ox 97 06/08/25 12:39 O2 Del Method Room Air 06/08/25 12:39 Allergies Allergy/AdvReac Type Severity Reaction Status Date / Time No Known Allergies Allergy Verified 05/24/25 14:03 Home Medications ?Medication ?Instructions ?Recorded ?Confirmed ?Type sildenafil 100 mg tablet 100 mg PO DAILY PRN sexual 0 09/09/23 05/24/25 Rx activity #90 tabs valacyclovir 500 mg tablet 500 mg PO DAILY #90 tabs 06/08/25 Rx (Valtrex) duloxetine 30 mg capsule,delayed 30 mg PO DAILY #90 ca ps 09/02/24 06/08/25 Rx release dicyclomine 10 mg capsule 10 mg PO QID #120 caps 01/2504/25/25 Rx amitriptyline 25 mg tablet See Rx Instructions PO QHS #60 tabs 04/11/25 06/08/25 Rx famotidine 40 mg tablet 40 mg PO DAILY #30 tabs 04/14 03/07 Rx meloxicam 15 mg tablet 15 mg PO DAILY #90 tabs 05/1506/08/25 Rx trazodone 50 mg tablet 50 mg PO QHS PRN insomnia #9 0 tabs 06/03/25 06/08/25 Rx zolpidem 5 mg tablet (Ambien) 5 mg PO QHS #30 tabs 06/08/25 Rx Patient hx anesthesia problems: none Family hx anesthesia problems: none Results Review: All pre-operative results and documents have been reviewed as part of the pre- operative evaluation. [facility]LY [facility], [facility] Past Medical History Medical History Complex tear of medial meniscus of knee Left knee pain Skin cancer screening GERD (gastroesophageal reflux disease) Irritable bowel syndrome with diarrhea Chronic meniscal tear of knee AC joint pain MELI on CPAP Situational anxiety Insomnia Erectile dysfunction History of torn meniscus of knee Surgical History Surgical History Hx of shoulder surgery History of fusion of cervical spine Family History Family History Father Hypertension Mother Skin cancer Sibling No problems noted. 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 Gender identity (if verbalized by the patient): Male Spiritual care concerns: No Anes - Eval Final PreProcedure Day of Procedure 06/08/25 13:09 Patient weight: overweight Heart: regular rate and rhythm Lungs: clear to auscultation Airway: Mallampati scale class II Neurological: alert and oriented Last oral intake: >/= 8 hours ASA classification: III Emergent: no Anesthetic plan: proceed Anesthesia type and monitoring: general GIVS and standard monitoring Results Review: All pre-operative results and documents have been reviewed as part of the pre- operative evaluation. Informed Consent: The patient's anesthetic plan and its attendant risks and benefits were discussed with the patient/family/POA. Questions were solicited and answers provided to the satisfaction of the patient/family/POA.
--- NOTE | 2025-06-08 13:16 | PM.HPGS ---
History of Present Illness History of Present Illness Consent: Risks, benefits, and alternatives have been discussed and questions answered. Patient agrees to proceed with procedure. Chief complaint: Right upper quadrant pain Narrative: Den Deleon is a 55 year old male here for first EGD, h/o gerd on famotidine Review of Systems Review of Systems: All systems reviewed & are unremarkable except as noted in HPI and below PMFSH Past Medical History Medical History Complex tear of medial meniscus of knee Left knee pain Skin cancer screening GERD (gastroesophageal reflux disease) Irritable bowel syndrome with diarrhea Chronic meniscal tear of knee AC joint pain MELI on CPAP Situational anxiety Insomnia Erectile dysfunction History of torn meniscus of knee Surgical History Surgical History Hx of shoulder surgery History of fusion of cervical spine Family History Family History Father Hypertension Mother Skin cancer Sibling No problems noted. 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 Gender identity (if verbalized by the patient): Male Spiritual care concerns: No Meds Home Medications and Allergies Home Medications ?Medication ?Instructions ?Recorded ?Confirmed ?Type sildenafil 100 mg tablet 100 mg PO DAILY PRN sexual 09/09/23 05/24/25 Rx activity #90 tabs valacyclovir 500 mg tablet 500 mg PO DAILY #90 tabs 12/03/23 06/08/25 Rx (Valtrex) duloxetine 30 mg capsule,delayed 30 mg PO DAILY #90 caps 09/02/24 06/08/25 Rx release dicyclomine 10 mg capsule 10 mg PO QID #120 caps 01/25/25 04/25/25 Rx amitriptyline 25 mg tablet See Rx Instructions PO QHS #60 tabs 04/11/25 06/08/25 Rx famotidine 40 mg tablet 40 mg PO DAILY #30 tabs 05/10/25 Rx meloxicam 15 mg tablet 15 mg PO DAILY #90 tabs 06/03/25 06/08/25 Rx trazodone 50 mg tablet 50 mg PO QHS PRN insomnia #90 tabs 06/03/25 06/08/25 Rx zolpidem 5 mg tablet (Ambien) 5 mg PO QHS #30 tabs 06/03/25 06/08/25 Rx Allergies Allergy/AdvReac Type Severity Reaction Status Date / Time No Known Allergies Allergy Verified 05/24/25 14:03 Vital Signs Vital Signs - 24 hr 06/08/25 12:39 Temperature 98.5 F Pulse Rate 79 Respiratory Rate 18 Blood Pressure 149/86 H Pulse Oximetry 97 Oxygen Delivery Room Air Exam Const: General: comfortable and no acute distress HENMT: Face/Nose/Sinus: Normal nares present Resp: Auscultation: clear to auscultation bilaterally Cardio: Rate: regular rate Rhythm: regular rhythm GI: Inspection: non-distended GI Palp: Yes Soft to palpation Skin: General skin exam: normal color Extrem: General: normal to inspection Psych: Mental Status: mental status grossly normal Assessment and Plan Assessment and plan (1) GERD (gastroesophageal reflux disease): Qualifiers: Esophagitis presence: esophagitis presence not specified Qualified Code(s): K21.9 - Gastro-esophageal reflux disease without esophagitis Code(s): K21.9 - Gastro-esophageal reflux disease without esophagitis Status: Acute Assessment and Plan: egd with bx
[2025-06-08 13:22] VITALS: BP 133/88; PULSE 85; RESP 18; O2SAT 97
--- NOTE | 2025-06-08 13:23 | S_PTH ---
PATIENT: Den Deleon LOC: [facility] Sneed#:[id number] AGE/SX: 55/M ROOM: RE06/08/[address]: Ari Hathaway MD : 1970 BED: DIS: 06/08/2025 SPEC #: [id number] RECD: 06/08/25 13:55 STATUS: JEANNE RERon #: [id number] ARACELI: 06/08/25 13:[address]: Ari Hathaawy DEPT: [facility] Surgical RECD BY: Varsha Crawford ENTERED: 06/08/25 13:56 SP TYPE: Surgical OTHR DR: Dwain Little MD Tissues: A - Gastric Biopsy B - Small Bowel Bx Procedures: Hematoxylin and Eosin Stain Gross and Microscopic Level 4
[2025-06-08 13:32] VITALS: BP 121/78; PULSE 73; RESP 18; O2SAT 97
[2025-06-08 13:42] VITALS: BP 128/92; PULSE 70; RESP 18; O2SAT 97
== END 2025-06-08 14:01 | disposition home or self-care (01) ==
PROVIDERS: PCP Family Medicine; Referring Provider Nurse Practitioner Family; Visit Provider Internal Medicine Gastroenterology
PROC: 0DJ08ZZ Inspection of Upper Intestinal Tract, Via Natural or Artificial Opening Endoscopic (ICD-10-PCS; CPT 43239; principal; 2025-06-08 14:30)
DX: K21.00 Gastro-esophageal reflux disease with esophagitis, without bleeding (principal); K29.70 Gastritis, unspecified, without bleeding; K58.0 Irritable bowel syndrome with diarrhea; G47.33 Obstructive sleep apnea (adult) (pediatric); N52.9 Male erectile dysfunction, unspecified; F41.8 Other specified anxiety disorders; G47.00 Insomnia, unspecified; F17.290 Nicotine dependence, other tobacco product, uncomplicated; Z99.89 Dependence on other enabling machines and devices; Z98.890 Other specified postprocedural states; Z98.1 Arthrodesis status; Z84.0 Family history of diseases of the skin and subcutaneous tissue
CPT/HCPCS: 43239; 88305; J2704; J7120